=== PATIENT | male | born 1955 | race Caucasian/White ===

== ENCOUNTER 2020-11-22 20:05 | Emergency (ER) | payer OTHER ==
[~2020-11-22] VITALS: Ht 182.9 cm; Wt 81.7 kg
[~2020-11-22 20:05] MED LIST: CENTRUM SILVER1 EAC2 PO; XANAX1 MG PO; ZOCOR 10 MG TAB10 MG PO
[2020-11-22 21:09] VITALS: BP 145/95
--- NOTE | 2020-11-23 11:31 | EKG ---
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 11/23/20 1131 2044 43 Abdullahi Rodríguez MD, FACC /EPI
== END 2020-11-22 21:09 | disposition home or self-care (01) ==
LOC: ER 20:05
DX: T42.8X1A Poisoning by antiparkinsonism drugs and other central muscle-tone depressants, accidental (unintentional), initial encounter (principal); R06.02 Shortness of breath; G25.81 Restless legs syndrome; Y92.89 Other specified places as the place of occurrence of the external cause; I10 Essential (primary) hypertension; Z72.89 Other problems related to lifestyle; Z79.899 Other long term (current) drug therapy; Z88.5 Allergy status to narcotic agent

== ENCOUNTER 2021-06-15 19:43 | Inpatient (IN) | payer OTHER ==
[~2021-06-15] VITALS: Ht 182.9 cm; Wt 78.9 kg
[2021-06-15 20:01] VITALS: BP 157/94
[2021-06-15] MEDS ORDERED: NORVASC 2.5 MG2.5 MG PO (20:38)
[2021-06-15] MEDS ORDERED: REQUIP 0.25 M0.25 M1 PO (20:39)
[2021-06-15] MEDS ORDERED: ZOLOFT 50 MG TA50 MG PO (20:39)
[2021-06-15] MEDS ORDERED: SYNTHROID125 MC1 PO (20:40)
[2021-06-15 20:45] LABS: HEMATOCRIT 41.9 % (42.0-52.0); HEMOGLOBIN 15.5 gm/dL (14.0-18.0); MCH 34.4 pg (26.0-34.0); MCHC 37.1 g/dL (28.0-37.0); MCV 92.8 fL (80.0-100.0); PLATELET COUNT 282 thou/uL (150-400); RBC 4.51 mil/uL (4.50-6.00); RDW 13.5 % (10.5-14.5); WBC 10.9 thou/uL (4.0-11.0)
[2021-06-15 21:13] LABS: ABSOLUTE NEUTROPHILS 5.9 thou/uL (1.4-8.2)
[2021-06-15 21:14] LABS: ANISOCYTOSIS 1+; LARGE PLATELETS FEW; PLATELET ESTIMATE NORMAL; POIKILOCYTOSIS 1+
[2021-06-15 21:27] LABS: ALBUMIN 3.6 g/dL (3.4-5.0); ANION GAP 25 mmol/L (7-16); BUN 25 mg/dL (7-18); CALCIUM 9.7 mg/dL (8.5-10.1); CO2 13 mmol/L (21-32); CREATININE 1.4 mg/dL (0.7-1.3); SGOT < 5 U/L (15-37); SGPT < 6 U/L (16-63); TOTAL BILIRUBIN 0.6 mg/dL (0.2-1.0)
[2021-06-15 21:43] LABS: CHLORIDE 84 mmol/L (98-107); GLUCOSE 399 mg/dL (74-106); POTASSIUM 3.1 mmol/L (3.5-5.1); SODIUM 122 mmol/L (136-145); TOTAL PROTEIN 8.8 g/dL (6.4-8.2)
[2021-06-15 23:09] LABS: BE(vivo) -12.6 mmol/L (-2 to +3); HCO3 13.7 mmol/L (22.0-26.0); PCO2 VENOUS 32.9 mmHg (41.0-51.0); PO2 VENOUS 34.4 mmHg (35.0-45.0)
[2021-06-16 02:36] LABS: CALCIUM 8.1 mg/dL (8.5-10.1); MAGNESIUM 1.8 mg/dL (1.8-2.4); PHOSPHORUS 2.5 mg/dL (2.5-4.9); POTASSIUM 3.4 mmol/L (3.5-5.1)
[2021-06-16 06:30] LABS: CALCIUM 8.2 mg/dL (8.5-10.1); CREATININE 0.9 mg/dL (0.7-1.3); MAGNESIUM 1.8 mg/dL (1.8-2.4); PHOSPHORUS 1.6 mg/dL (2.5-4.9); POTASSIUM 3.1 mmol/L (3.5-5.1)
[2021-06-16 10:20] LABS: URINE BLOOD NEGATIVE (Negative); URINE CLARITY CLEAR; URINE COLOR YELLOW; URINE GLUCOSE-RANDOM* TRACE (Negative); URINE KETONES 3+ (Negative); URINE LEUKOCYTES NEGATIVE (Negative); URINE NITRITE NEGATIVE (Negative); URINE PROTEIN (DIPSTICK) NEGATIVE (Negative); URINE SPECIFIC GRAVITY >= 1.030 (1.005-1.035); URINE UROBILINOGEN 0.2 E.U./dl (0.2-1.0)
[2021-06-16 10:33] LABS: ICTOTEST (BILI CONFIRMATORY) Negative (Negative); URINE BILIRUBIN NEGATIVE (Negative); URINE REDUCING SUBSTANCE 1% %
[2021-06-16 10:50] LABS: CALCIUM 8.4 mg/dL (8.5-10.1); MAGNESIUM 1.8 mg/dL (1.8-2.4); PHOSPHORUS 1.9 mg/dL (2.6-4.7)
[2021-06-16 10:53] LABS: POTASSIUM 3.1 mmol/L (3.5-5.1)
[2021-06-16 20:16] VITALS: BP 136/81
[2021-06-16 21:16] LABS: CALCIUM 8.3 mg/dL (8.5-10.1); CREATININE 0.9 mg/dL (0.7-1.3); POTASSIUM 3.1 mmol/L (3.5-5.1)
[2021-06-16 21:21] LABS: ALBUMIN 2.8 g/dL (3.4-5.0); MAGNESIUM 1.8 mg/dL (1.8-2.4); PHOSPHORUS 1.3 mg/dL (2.6-4.7)
--- NOTE | 2021-06-17 07:05 | NUR ---
THIS RN ASSUMES CARE OF PT FROM ZACHARY ODONNELL. REPORT GIVEN THAT PT WAS TAKEN OFF INSULIN DRIP.
[2021-06-17 07:08] LABS: GLYCOHEMOGLOBIN (HGB A1C) 12.9 % (4.8-5.6)
[2021-06-17 08:51] VITALS: BP 141/79
--- NOTE | 2021-06-17 09:32 | NUR ---
DR NAVARRO CALLED THIS RN REGARDING PT 0600 LABS NOT BEING SENT. WHEN THIS RN SPOKE TO LAB, THEY STATE PT "REFUSED". PT STATES "I DIDN'T REFUSE I JUST REQUESTED THEY DONT STICK ME IN THE WRIST". THIS RN DRAWS LABS AND HAS SENT THEM AT THIS TIME AND NOTIFIED LAB.
[2021-06-17 09:50] LABS: CALCIUM 6.5 mg/dL (8.5-10.1); CREATININE 0.8 mg/dL (0.7-1.3)
[2021-06-17 09:58] LABS: POTASSIUM 2.4 mmol/L (3.5-5.1)
--- NOTE | 2021-06-17 10:00 | NUR ---
THIS RN NOTIFIED DR NAVARRO OF PT CRITICAL LAB K+. DR NAVARRO INQUIRING WHY PT WAS TAKEN OFF OF INSULIN DRIP AND DKA PROTOCOL. THIS RN RECIEVED REPORT THIS AM FROM HUMANITIES DIVISION CHAIR THAT PT WAS TAKEN OFF AFTER SPEAKING WITH DRIVER OPERATOR LAST PM, UNKNOWN WHAT TIME IT WAS NOT DOCUMENTED ON DKA PROTOCOL SHEET OR IN EMR. DR NAVARRO VERBALLY STATES WE WILL KEEP PT OFF OF INSULIN DRIP AT THIS TIME AND WILL ENTER IN ORDERS FOR PT.
--- NOTE | 2021-06-17 12:31 | NUR ---
AT BEDSIDE. PT UP TO BATHROOM, GAIT STEADY. DENIES NEEDS.
--- NOTE | 2021-06-17 13:05 | NUR ---
REPORT TO MICA
--- NOTE | 2021-06-17 15:34 | NUR ---
PT ADMITTED RELATED TO DKA, VOMITING, DEHYDRATION. CM REVIEWED CHART AND SPOKE WITH ARE TEAM. CM CALLED AND SPOKE WITH PT THIS DAY. PT APPEARED TO BE A&O X4. CM ROLE INTRODUCED. PT INDICATED HE LIVES IN A HOUSE WITH HIS WITH 1 STEP TO ENTER AND A FULL FLIGHT OF STEPS INSIDE TO BASEMENT. 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 PT INDICATED NO HH OR OP THERAPY HX. PT INDICATED HE PLANS TO DC HOME ONCE MEDICALLY STABLE. PT'S PCP DR. KATRIN ELLISON. PT'S PHARMACY ON FILE IS CORRECT. PT INDICATED ABLE TO PAT TO FILL SCRIPTS UPON DC. 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 PT IS ANTICPATED TO DC HOME TO SELF CARE ONCE MEDICALLY STABLE. NO ADDITIONAL NEEDS ANTICAPTED UPON DC.
[2021-06-17 15:40] LABS: ANION GAP 15 mmol/L (7-16); BUN 10 mg/dL (7-18); CALCIUM 7.5 mg/dL (8.5-10.1); CHLORIDE 98 mmol/L (98-107); CO2 17 mmol/L (21-32); CREATININE 0.8 mg/dL (0.7-1.3); GLUCOSE 298 mg/dL (74-106); MAGNESIUM 1.5 mg/dL (1.8-2.4); SODIUM 130 mmol/L (136-145)
[2021-06-17 15:41] LABS: POTASSIUM 3.7 mmol/L (3.5-5.1)
[2021-06-17 16:41] VITALS: BP 118/60
[2021-06-17 16:57] VITALS: BP 129/76
[2021-06-17 20:18] VITALS: BP 113/65
[2021-06-18 06:04] LABS: CALCIUM 7.4 mg/dL (8.5-10.1); MAGNESIUM 1.5 mg/dL (1.8-2.4)
[2021-06-18 06:22] LABS: CREATININE 0.8 mg/dL (0.7-1.3)
[2021-06-18 06:24] LABS: POTASSIUM 2.7 mmol/L (3.5-5.1)
--- NOTE | 2021-06-18 07:03 | NUR ---
CRITICAL K+ OF 2.7 RECIEVED FROM LAB THIS AM. RORY RIDER NOTIFIED AT 0628, MAG AND POTASSIUM REPLACEMENT ORDERS.
[2021-06-18 07:30] VITALS: BP 149/89
[2021-06-18 11:46] VITALS: BP 120/76
[2021-06-18 16:06] VITALS: BP 128/76
--- NOTE | 2021-06-18 17:14 | NUR ---
Electrolytes replaced this shift; lab draw orders are in. Patients blood sugar still running high; re-educated on carb control diet. Patient was taught how to administer insulin. Patient verbalized some understanding but needs reinforcement stating "I need to do it with a pen, not a syringe". IVF infusing on LAC with no issues. Patient denies pain or further needs. Steady on feet. Calls out as needed.
[2021-06-18 17:37] LABS: POTASSIUM 3.1 mmol/L (3.5-5.1)
[2021-06-18 18:07] LABS: CALCIUM 8.1 mg/dL (8.5-10.1); CREATININE 0.9 mg/dL (0.7-1.3); MAGNESIUM 2.1 mg/dL (1.8-2.4); PHOSPHORUS 1.1 mg/dL (2.6-4.7)
[2021-06-18 20:25] VITALS: BP 123/77
--- NOTE | 2021-06-19 06:46 | NUR ---
PT AMBULATING IN ROOM INDEPENDENTLY AND IS TOLERATING WELL. DENIES PAIN. RESTING COMFORTABLY. NO NEEDS VOICED. CALL LIGHT WITHIN REACH. FREQUENT OBSERVATION.
[2021-06-19 08:41] VITALS: BP 132/64
[2021-06-19 11:41] VITALS: BP 145/91
[2021-06-19 11:59] LABS: HEMATOCRIT 39.1 % (42.0-52.0); MCH 34.9 pg (26.0-34.0); MCHC 38.4 g/dL (28.0-37.0); MCV 90.9 fL (80.0-100.0); PLATELET COUNT 243 thou/uL (150-400); RDW 14.1 % (10.5-14.5); WBC 8.1 thou/uL (4.0-11.0)
[2021-06-19 12:28] LABS: POTASSIUM 3.8 mmol/L (3.5-5.1)
[2021-06-19 12:45] LABS: ABSOLUTE NEUTROPHILS 2.3 thou/uL (1.4-8.2); ATYPICAL LYMPHS 1 %; PLATELET ESTIMATE NORMAL
[2021-06-19 12:47] LABS: MAGNESIUM 1.7 mg/dL (1.8-2.4)
[2021-06-19 12:48] LABS: TOTAL BILIRUBIN 1.3 mg/dL (0.2-1.0)
[2021-06-19 13:10] LABS: ALBUMIN 3.2 g/dL (3.4-5.0); CALCIUM 8.1 mg/dL (8.5-10.1); CREATININE 0.7 mg/dL (0.7-1.3); TOTAL PROTEIN 7.6 g/dL (6.4-8.2)
[2021-06-19] MEDS ORDERED: MAGOX 400400 MG PO (16:55)
[2021-06-19] MEDS ORDERED: PHOSPHA 250 NE250 MG PO (16:55)
--- NOTE | 2021-06-19 16:55 | NUR ---
PT AND PT EDUCATED ON INSULIN SCALE, WHEN TO TAKE, AND WHERE TO TAKE. HOW TO DRAW UP AND ADMINISTER; PT DEMONSTRATED SUCESSFULLY.
[2021-06-19] MEDS ORDERED: TRADJENTA5 MG PO (16:57)
[2021-06-19] MEDS ORDERED: METFORMIN HCL500 MG PO (16:57)
[2021-06-19] MEDS ORDERED: PROTONIX 20 MG20 M1 PO (16:57)
[2021-06-19] MEDS ORDERED: LANTUS SUBQ (16:59)
[2021-06-19] MEDS ORDERED: HUMALOG KW100 UNIT/1 SUBQ (17:01)
--- NOTE | 2021-06-19 17:52 | NUR ---
PT DISCHARGED TO HOME. DISCHARGE PAPERS COMPLETED AND WENT OVER WITH PT AND PT . ALL QUESTIONS WERE ANSWERED. IV REMOVED WITHOUT DIFFICULTY, CATHETER INTACT. PRESSURE DRESSING APPLIED TO RIGHT AC. TECH ESCORTED PT TO CAR IN WHEELCHAIR WITH .
== END 2021-06-19 17:55 | disposition home or self-care (01) | DRG 638 ==
LOC: ER 19:43 → EROBS 22:46 → 4S 06-17 16:43
PROVIDERS: Emergency Medicine; Internal Medicine; Nurse Practitioner Family; ADMIT Internal Medicine; ATTEND Internal Medicine
DX: E11.10 Type 2 diabetes mellitus with ketoacidosis without coma (principal); N17.9 Acute kidney failure, unspecified; E78.00 Pure hypercholesterolemia, unspecified; K21.9 Gastro-esophageal reflux disease without esophagitis; F32.A Depression, unspecified; E89.0 Postprocedural hypothyroidism; E78.5 Hyperlipidemia, unspecified; E83.42 Hypomagnesemia; E83.39 Other disorders of phosphorus metabolism; F41.9 Anxiety disorder, unspecified; F10.20 Alcohol dependence, uncomplicated; E80.6 Other disorders of bilirubin metabolism; E87.6 Hypokalemia; E86.0 Dehydration; I10 Essential (primary) hypertension; G25.81 Restless legs syndrome; Z20.822 Contact with and (suspected) exposure to COVID-19; Z79.899 Other long term (current) drug therapy; Z88.5 Allergy status to narcotic agent; Z83.3 Family history of diabetes mellitus
CPT/HCPCS: 10100